=== PATIENT | female | born 1955 | race African-American/Black ===

== ENCOUNTER 2017-03-29 00:15 | Emergency (ER) | payer OTHER ==
[~2017-03-29] VITALS: Ht 160 cm; Wt 100.0 kg
[~2017-03-29 00:15] MED LIST: EPI PEN
[2017-03-29] MEDS ORDERED: DIPHENHYDRAMINE 50MG/ML VIAL IV ONE ×2 (00:30→01:45)
[2017-03-29] MEDS ORDERED: FAMOTIDINE 20MG/2ML VIAL IV ONE (00:30)
[2017-03-29] MEDS ORDERED: METHYLPREDNISOLONE SOD SUCC 125 MG/2 ML VIAL IV ONE (00:30)
[2017-03-29 00:48] LABS: CHLORIDE 107 mEq/L (98-107)
[2017-03-29 00:57] LABS: CARBON DIOXIDE 20 mEq/L (21-32)
[2017-03-29 01:04] LABS: EOSINOPHILS % 1.4 % (0.0-5.0); HEMATOCRIT. 43.4 % (36.0-48.0); HEMOGLOBIN. 15.3 g/dL (12.0-16.0); LYMPHOCYTES % 39.6 % (20.0-50.0); MEAN CORPUSCULAR HEMOGLOBIN 30.5 pg (28.0-32.0); MEAN CORPUSCULAR VOLUME 86.1 fL (81.0-99.0); MEAN PLATELET VOLUME 9.3 fl (7.4-10.4); MONOCYTES % 9.9 % (2.0-8.0); NEUTROPHILS % 48.1 % (40.0-76.0); PLATELET 202 x1000/uL (130-400); RED BLOOD CELL COUNT 5.04 mill/uL (4.2-5.4); RED CELL DISTRIBUTION WIDTH 15.1 % (11.6-14.6)
[2017-03-29 04:10] VITALS: BP 125/88
== END 2017-03-29 04:31 | disposition home or self-care (01) ==
LOC: ER 00:16
DX: T78.2XXA Anaphylactic shock, unspecified, initial encounter (principal)
CPT/HCPCS: 36415; 71010; 80053; 85025; 96374; 96375; 96376; 99291; J1200; J2930; J3490

== ENCOUNTER 2017-04-28 23:42 | Emergency (ER) | payer OTHER ==
[~2017-04-28] VITALS: Ht 165.1 cm; Wt 115.0 kg
[2017-04-28] MEDS ORDERED: SODIUM CHLORIDE 0.9% 1,000 ML IV SCH (23:52)
[2017-04-29] MEDS ORDERED: DIPHENHYDRAMINE 50MG/ML VIAL IV ONE
[2017-04-29] MEDS ORDERED: DEXAMETHASONE 10 MG/ML VIAL IV ONE
[2017-04-29] MEDS ORDERED: FAMOTIDINE 20MG/2ML VIAL IV ONE
[2017-04-29 02:09] VITALS: BP 138/75
== END 2017-04-29 02:11 | disposition home or self-care (01) ==
LOC: ER 23:42
DX: T78.40XA Allergy, unspecified, initial encounter (principal); Z98.890 Other specified postprocedural states; X58.XXXA Exposure to other specified factors, initial encounter
CPT/HCPCS: 96361; 96374; 96375; 99284; J1100; J1200; J3490; J7030; Z7610

== ENCOUNTER 2019-02-13 23:36 | Emergency (ER) | payer OTHER ==
[~2019-02-13] VITALS: Ht 160 cm; Wt 109.0 kg
[2019-02-14] MEDS ORDERED: DIPHENHYDRAMINE 50MG/ML VIAL IV ONE (01:00)
[2019-02-14] MEDS ORDERED: EPINEPHRINE 1:1000 1 MG/ML AMP IM ONE (01:00)
[2019-02-14] MEDS ORDERED: FAMOTIDINE 20MG/2ML VIAL IV ONE (01:00)
[2019-02-14] MEDS ORDERED: METHYLPREDNISOLONE SOD SUCC 125 MG/2 ML VIAL IV ONE (01:00)
[2019-02-14 03:55] VITALS: BP 115/69
== END 2019-02-14 04:05 | disposition home or self-care (01) ==
LOC: ER 23:36
DX: T78.49XA Other allergy, initial encounter (principal); L29.8 Other pruritus; Z91.018 Allergy to other foods; Z91.013 Allergy to seafood
CPT/HCPCS: 96372; 96374; 96375; 99291; J1200; J2930; J3490

== ENCOUNTER 2022-12-14 01:52 | Emergency (ER) | payer BC, OTHER ==
[~2022-12-14] VITALS: Ht 157.5 cm; Wt 86.0 kg
[2022-12-14 01:58] VITALS: BP 167/93
[2022-12-14] MEDS ORDERED: ONDANSETRON HCL 4MG/2ML INJ IV ONE (02:15)
== END 2022-12-14 02:39 | disposition left against medical advice (07) ==
LOC: ER 01:52
DX: R42 Dizziness and giddiness (principal)
CPT/HCPCS: 99283

== ENCOUNTER 2023-07-27 00:28 | Emergency (ER) | payer BC ==
[~2023-07-27] VITALS: Ht 170.2 cm; Wt 100.0 kg
[2023-07-27] MEDS ORDERED: SODIUM CHLORIDE 0.9% 1,000 ML IV SCH (00:30)
[2023-07-27] MEDS ORDERED: EPINEPHRINE 1:1000 1 MG/ML AMP IM ONE (00:30)
[2023-07-27] MEDS ORDERED: FAMOTIDINE 20MG/2ML VIAL IV ONE (00:30)
[2023-07-27] MEDS ORDERED: METHYLPREDNISOLONE SOD SUCC 125MG/2ML (ACT-O-VIAL) IV ONE (00:30)
[2023-07-27] MEDS ORDERED: DIPHENHYDRAMINE 50MG/ML VIAL IV ONE (00:30)
[2023-07-27 00:34] VITALS: O2SAT 100
[2023-07-27 01:32] LABS: BASOPHILS % 0.6 % (0.0-2.0); EOSINOPHILS % 1.7 % (0.0-5.0); HEMATOCRIT. 40.2 % (36.0-48.0); HEMOGLOBIN. 14.1 g/dL (12.0-16.0); LYMPHOCYTES % 38.4 % (20.0-50.0); MEAN CORPUSCULAR HEMOGLOBIN 30.7 pg (28.0-32.0); MEAN CORPUSCULAR VOLUME 87.6 fL (81.0-99.0); MEAN PLATELET VOLUME 8.8 fl (7.4-10.4); MONOCYTES % 11.6 % (2.0-8.0); NEUTROPHILS % 47.7 % (40.0-76.0); PLATELET 207 x1000/uL (130-400); RED BLOOD CELL COUNT 4.59 mill/uL (4.2-5.4); RED CELL DISTRIBUTION WIDTH 14.8 % (11.6-14.6); WHITE BLOOD COUNT 7.2 x1000/uL (4.5-11.0)
[2023-07-27 02:02] VITALS: PULSE 94; RESP 22
[2023-07-27] MEDS: ALBUTEROL (0.083%) 2.5MG/3ML NEB HHN SCH ×3 (02:02→03:02)
[2023-07-27 02:29] LABS: ALANINE AMINOTRANSFERASE 13 IU/L (10-49); ALBUMIN 3.5 g/dL (3.2-4.8); ASPARTATE AMINOTRANSFERASE 20 IU/L (<34); BILIRUBIN TOTAL 0.4 mg/dL (0.1-1.0); CALCIUM 8.6 mg/dL (8.7-10.4); CARBON DIOXIDE 23 mEq/L (21-32); CHLORIDE 108 mEq/L (98-107); CREATININE 0.6 mg/dL (0.6-1.0); GLUCOSE 152 mg/dL (70-105); POTASSIUM 2.9 mEq/L (3.5-5.1); PROTEIN TOTAL 6.4 g/dL (6.0-8.3); SODIUM 141 mEq/L (136-145); UREA NITROGEN BLOOD 11 mg/dL (9-23)
[2023-07-27 02:32] VITALS: PULSE 91; RESP 24
[2023-07-27] MEDS ORDERED: EPIN0.3P3 IM (02:59)
[2023-07-27] MEDS ORDERED: MED4 MT (02:59)
[2023-07-27] MEDS ORDERED: DIPH25TA62 MT (02:59)
[2023-07-27 03:02] VITALS: PULSE 96; RESP 24
[2023-07-27] MEDS ORDERED: ALBUTEROL (0.083%) 2.5MG/3ML NEB ONE (03:29)
[2023-07-27 03:44] LABS: TROPONIN I HIGH SENSITIVITY < 4 ng/L (3.0-34)
[2023-07-27 05:00] VITALS: BP 125/60; PULSE 79; RESP 24; TEMP 97.8
[2023-07-27] MEDS ORDERED: POTASSIUM CHLORIDE 20MEQ/PACKET PO NR (05:15)
[2023-07-27 06:07] LABS: COLOR URINE YELLOW (YELLOW)
[2023-07-27 06:08] LABS: CLARITY URINE CLEAR (CLEAR); GLUCOSE URINE NEGATIVE (NEGATIVE); KETONES URINE NEGATIVE (NEGATIVE); LEUKOCYTE ESTERASE URINE NEGATIVE (NEGATIVE); NITRITE URINE NEGATIVE (NEGATIVE); OCCULT BLOOD URINE NEGATIVE (NEGATIVE); PROTEIN URINE NEGATIVE (NEGATIVE); SPECIFIC GRAVITY URINE 1.007 (1.005-1.030); UROBILINOGEN URINE 0.2 E.U./dL (0.2-1.0)
== END 2023-07-27 05:58 | disposition home or self-care (01) ==
LOC: ER 00:28
DX: T78.2XXA Anaphylactic shock, unspecified, initial encounter (principal); R06.02 Shortness of breath; R06.2 Wheezing; I10 Essential (primary) hypertension; X58.XXXA Exposure to other specified factors, initial encounter
CPT/HCPCS: 94640; 99285; 96374; 71045; 96375; 96361; 80053; 81003; 85025; 84484; 36415; 93005; 96372; J1200; J3490 ×2; J2930